=== PATIENT | male | born 1995 | race Caucasian/White ===

== ENCOUNTER 2025-01-27 09:38 | Outpatient (REF) | payer MEDICAID, SELFPAY ==
--- OUTSIDE RECORDS SUMMARY | 2025-01-27 10:53 | XMS_ITS | Clinical Summary ---
Author Organization [facility] Address [address] [place] [address] Care Team Providers Care Email Operations Manager Name Role Phone Unavailable Primary Care Provider Unavailabl e Source Comments PLEASE NOTE, if this patient is a minor, it may be UNLAWFUL to discuss sensitive information that is contained in these records (such as FAMILY PLANNING, MENTAL HEALTH or SUBSTANCE ABUSE) with the minor patient's parent or other person without the patient's specific authorization.[facility] Allergies No known active allergies Medications No known medications Active Problems No known active problems Social History Tobacco Use Types Packs/Day Years Used Date Smoking Tobacco: Never Passive Smoke Exposure: Never Smokeless Tobacco: Never Tobacco Cessation:Counseling Given: Not Answered Social Connections Answer Date Recorded Connectedness 0 05/24/2024 Financial Resource Strain Answer Date R ecorded Financial Resource Strain 0 2023 Stress Answer Date Recorded Stress 0 11/04/2023 Physical Activity Answer Date Recorded Physical Activity 0 11/04/2023 Food Insecurity Answer Date Recorded Food 0 06/04/2024 Transportation Needs Answer Date Record ed Transportation 0 11/04/2023 Housing Stability Answer Date Recorded Housing 0 11/04/2023 Safety and Environment Answer Date Josh rded Safety 0 11/04/2023 Utilities Answer Date Recorded Utilities 0 11/04/2023 Employment Answer Date Recorded Stress 0 05/24/2024 Sex and Gender Information Value Date Recorded Sex Assigned at Not on file Legal Sex Male 7:01 AM PST Gender Identity Not on file Sexual Orientation Not on file Plan of Treatment Upcoming Encounters Date Type Department Care Team (Late st Contact Info) Description 02/16/2025 10:20 AM EDT Office Visit [facility] [address] [place] [id number] [address] [place] [address] [place] [address] Health Maintenance Due Date Last Done Comments Anxiety Screening 1997 Dental Perio Charting 1997 Hypertension Screening (#1) 2015 [id number] ( season) 2024 10/24/2022, 02/01/2021, 01/11/2021 Imm-Influenza (#1) 2024 10/24/2022, 1 , 10/13/2008 Alcohol and Drug Screen 09/09/2024 Depression Annual Screen 09/09/2024 Tobacco Screening 02/11/2025 02/12/2024 Dental BW 08/20/2025 08/18/2024, 02/12/2024 Dental Examination 08/20/2025 08/18/2024, 02/12/2024 Dental Prophy 08/20/2025 08/18/2024, 02/13/2024 Dental FMX/Pano 02/13/2029 02/12/2024 Imm-DTaP/Tdap/Td (9 - Td or Tdap) 11/21/2032 11/21/2022, 05/28/2016, 07/06/2010, Additional history exists Imm-Hepatitis B Completed 05/06/1998, 10/11, 1997 HIV Screening Completed 06/24/2020 Hepatitis C Screening Completed 11/21/2022 Procedures Procedure Name Priority Date/Time Associated Diagnosis Comments BITEWINGS - FOUR RADIOGRAPHIC IMAGES Routine 08/18/2024 10:20 AM EST Chronic gingivitis, plaque induced Caries of enamel (incipient) Encounter for dental examination and cleaning without abnormal findings PROPHYLAXIS - ADULT Routine 08/18/2024 1 0:20 AM EST Chronic gingivitis, plaque induced Caries of enamel (incipient) Encounter for dental examination and cleaning without abnormal findings PERIODIC ORAL EVALUATION ESTABLISHED PATIENT Routine 08/18/2024 10:20 AM EST Chronic gingivitis, plaque induced Caries of enamel (incipient) Encounter for dental examination and cleaning without abnormal findings INTRAORAL - COMP SERIES OF RADIOGRAPHIC IMAGES Routine 02/12/2024 10:20 AM EDT Caries of enamel (incipient) Caries Encounter for dental examination from Last 3 Months or Most Recently Relevant to Health Maintenance Insurance [place]
[2025-01-27 11:10] LABS: MANUAL DIFF FLAG NO
[2025-01-27 11:18] LABS: Basophils Percent Auto 0.8 % (0-2); Eosinophils Absolute Auto 0.2 X10*3/uL (0.0-0.4); Eosinophils Percent Auto 5.1 % (0-4); Hematocrit 42.7 % (42.0-52.0); Hemoglobin 14.2 g/dl (14.0-18.0); Imm Gran Abs Auto 0.02 X10*3/uL (0.00-0.03); Imm Gran Pct Auto 0.5 % (0.0-0.4); Lymphocytes Absolute Auto 1.7 X10*3/uL (1.2-4.9); Lymphocytes Percent Auto 42.9 % (20-40); Mean Corpuscular HGB Conc 33.3 g/dl (31.0-36.0); Mean Corpuscular Hemoglobin 31.8 pg (27.0-33.0); Mean Corpuscular Volume 95.5 fL (80.0-98.0); Mean Platelet Volume 10.6 fL (9.4-12.4); Monocytes Absolute Auto 0.5 X10*3/uL (0.1-1.2); Monocytes Percent Auto 12.6 % (2-11); Neutrophils Absolute Auto 1.5 x10*3/uL (2.0-8.3); Neutrophils Percent Auto 38.1 % (45-73); Platelet Count 222 X10*3/uL (160-400); Red Blood Count 4.47 X10*6/uL (4.60-5.80); Red Cell Distribution Width 11.9 % (11.0-16.0); White Blood Count 3.9 X10*3/uL (4.8-10.8)
[2025-01-27 11:41] LABS: Alanine Aminotransferase 22 U/L (0-40); Albumin Level 4.4 g/dL (3.5-5.0); Alkaline Phosphatase 77 U/L (39-117); Anion Gap 11 (12-20); Aspartate Amino Transferase 21 U/L (5-37); Bilirubin Total 0.2 mg/dL (0.0-1.0); Blood Urea Nitrogen 10 mg/dL (9-16); Calcium 8.9 mg/dL (8.4-10.2); Carbon Dioxide 27 mmol/L (22-29); Chloride 108 mmol/L (96-108); Estimated Glomerular Filt Rate > 60; Glucose Random 93 mg/dL (60-115); Potassium 3.8 mmol/L (3.3-5.1); Sodium 142 mmol/L (135-145); Total Protein 7.5 g/dL (6.5-8.0)
[2025-01-27 12:22] LABS: HBS Num1 0.79 mIU/mL (0-7.99); HBc Num1 0.07 S/CO (0.00-0.79); HBsAGNum1 0.43 S/CO (0.00-0.99); HIV AB/AG Nonreactive (Nonreactive); HIV Num 1 0.08 S/CO (0.00-0.99); Hepatitis B Core Antibody Nonreactive (Nonreactive); Hepatitis B Surface Antigen Negative (Negative); ~HepC Num1 0.16 S/CO (0.00-0.79); ~Hepatitis B Surface Antibody NONREACTIVE (Nonreactive); ~Hepatitis C Antibody Nonreactive (Nonreactive)
[2025-01-28 11:23] LABS: RPR Rapid Plasma Reagin NON-REACTIVE (NON-REACTIVE)
[2025-01-28 18:37] LABS: Lyme Abs Screen <0.90 index
== END 2025-01-27 09:39 | disposition home or self-care (01) ==
LOC: HO.HHCL 09:38
PROVIDERS: Visit Provider Emergency Medicine
DX: R21 Rash and other nonspecific skin eruption (principal)
CPT/HCPCS: 36415; 80053; 85025; 86592; 86617; 86618; 86704; 86706; 86803; 87340; 87389

== ENCOUNTER 2025-01-28 11:12 | Outpatient (RCR) | payer MEDICAID, SELFPAY | END 2025-02-10 10:51 | disposition home or self-care (01) | LOC: HO.PT 11:12 | PROVIDERS: PCP Registered Nurse; Visit Provider Nurse Practitioner | DX: T24.301D Burn of third degree of unspecified site of right lower limb, except ankle and foot, subsequent encounter (principal); T24.302D Burn of third degree of unspecified site of left lower limb, except ankle and foot, subsequent encounter; T25.322D Burn of third degree of left foot, subsequent encounter | CPT/HCPCS: 97110; 97162; 97535 ==